=== PATIENT | male | born 1945 | race Caucasian/White ===

== ENCOUNTER → 2017-03-08 | Day surgery (SDC) | payer OTHER ==
[~2017-03-08] VITALS: Ht 175.3 cm; Wt 87.1 kg
[~2017-03-08] MED LIST: 0.9% Sodium Chloride 1,000 ML IV PRN; ADV100INH IH; BENA20TA PO; CETI10CA PO; FLUT16SP NS; METO-272 PO; Sodium Chloride LOK Flush 10 mL Syringe IV PRN; fentaNYL-PF 50 mCg/mL 2 mL Inj IVPUSH PRN
[2017-03-08 08:28] VITALS: BP 168/90; PULSE 99; RESP 14; O2SAT 99
[2017-03-08 09:02] VITALS: BP 100/67; PULSE 61; RESP 14; O2SAT 97
[2017-03-08 09:12] VITALS: BP 116/61; PULSE 62; RESP 12; O2SAT 96
--- NOTE | 2017-03-08 09:13 | ENDO ---
[address] [address] ENDOSCOPY PROCEDURE PATIENT: MATHEW CURIEL : 1945 MR#: [id number] ADMIT: 03/08/2017 JOB ID: [id number] DATE: 03/08/2017 PROCEDURE: Colonoscopy with cold forceps polypectomies. INDICATION: A 71-year-old male with a personal history of colon polyps returning for surveillance. EQUIPMENT: PCF H 180 AL. SEDATION: 1. 5 mg Versed. 2. 100 mcg fentanyl. COMPLICATIONS: None identified. BOWEL PREPARATION: Fair, adequate examination. PROCEDURAL INFORMATION: After the risks and benefits were explained, written and verbal informed consent was obtained. The patient was brought into the endoscopy suite and placed into the left lateral decubitus position. Sedation was achieved as above. Digital rectal examination accomplished. Mild internal and external hemorrhoids noted. No other significant pathology appreciated. The scope was introduced into the rectum and advanced to the cecum as identified by the appendiceal orifice and ileocecal valve. The scope was slowly withdrawn to carefully examine the mucosa for any defects or lesions. Multiple direct views were made through the dentate line for exclusion of pathology. The colon was decompressed. The scope removed from the patient who tolerated the procedure well. FINDINGS: In the transverse and in the approximately descending colon, two diminutive polyps were removed with cold forceps. We initially deployed a snare with a cold snare on the first polyp, but the polyp was in essence too small to be managed by the cold snare. No other significant mucosal pathology was appreciated throughout. ENDOSCOPIC DIAGNOSIS: 1. Hemorrhoids. 2. Colon polyps. RECOMMENDATIONS: 1. Await histopathology. 2. Repeat colonoscopy five years.
--- NOTE | 2017-03-10 11:54 | PATH ---
SURGICAL PATHOLOGY Attending Physician:Tory Fletcher CASE STATUS: Signed Out PATIENT NAME: MATHEW CURIEL PID: [id number] : 1945 DATE COLLECTED:03/08/2017 19:40 SPECIMEN: Colon, Polyp CLINICAL HISTORY: 1). COLON POLYPS X 2 FINAL DIAGNOSIS: Colon, Polyps x2, Biopsies: Tubular adenomas. ICD10: D12.6 GROSS DESCRIPTION: The specimen is received in one formalin filled container labeled with the patient's name, sublabeled "colon polyps X2" and consists of 2 portions of tissue which aggregate to 0.2 x 0.2 x 0.2 CM. The specimen is entirely submitted in one cassette. 03/08/2017DC ICD-9 CODES: CPT CODES: 1: 86704 Electronically Signed Out Kaila Cole MD [facility] Pathology [facility] [address] [facility], [place] [address] Technical component performed at [facility], [address] [place] [address] [address], [address]
== END | disposition home or self-care (01) ==
LOC: END 00:19
PROVIDERS: ATTEND Internal Medicine Gastroenterology
DX: Z12.11 Encounter for screening for malignant neoplasm of colon (principal); Z86.010 Personal history of colon polyps; D12.3 Benign neoplasm of transverse colon; D12.4 Benign neoplasm of descending colon; K64.9 Unspecified hemorrhoids; I10 Essential (primary) hypertension; I49.9 Cardiac arrhythmia, unspecified; J45.40 Moderate persistent asthma, uncomplicated; Z85.46 Personal history of malignant neoplasm of prostate
CPT/HCPCS: 45380; G0500; J2250; J3010; J7030